=== PATIENT | male | born 2000 | race Caucasian/White ===

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

== ENCOUNTER 2019-06-08 14:12 | Emergency (ER) | payer BC ==
--- NOTE | 2019-06-08 14:16 | PDOC ---
History of Present Illness - General Chief Complaint: Sore Throat Stated Complaint: sore throat Time Seen by Provider: 06/08/19 14:16 - History of Present Illness Initial Comments: 06/08/19 14:19 Pt presents to the ED complaining of a one day history of fever, sore throat and difficulty swallowing. Also complaining of chills without measured fever. Denies nausea, vomiting or cough. Seen at an urgent care yesterday and discharged with ibuprofen and cough syrup. Rapid strep at urgent care yesterday was negative. States that he has been unable to tolerate PO since last night. Past History - Past Medical History Allergies/Adverse Reactions: Allergies Allergy/AdvReac Type Severity Reaction Status Date / Time No Known Allergies Allergy Verified 06/08/19 14:14 Home Medications: Ambulatory Orders Amoxicillin 875 mg PO BID #20 tablet 06/08/19 Kidney Stones: Yes Psychiatric Problems: Yes (add,anxiety) - Immunization History Td Vaccination: Yes TDAP Vaccination: Yes Immunization Up to Date: Yes - Psycho Social/Smoking Cessation Hx Smoking Status: No Smoking History: Current every day smoker Have you smoked in the past 12 months: Yes Number of Cigarettes Smoked Daily: 10 Cigars Per Day: 0 'Breaking Loose' booklet given: 05/09/16 Hx Alcohol Use: No Drug/Substance Use Hx: No Substance Use Type: None Review of Systems - Review of Systems Is the patient limited Guamanian proficient: No Constitutional: Yes: Chills, Loss of Appetite, Malaise. No: Symptoms Reported, See HPI, Diaphoresis, Fever, Night Sweats, Weakness, Weight Stable, Unintentional Wgt. Loss, Unexplained wgt Loss, Other HEENTM: Yes: Throat Pain, Throat Swelling. No: Symptoms Reported, See HPI, Eye Pain, Blurred Vision, Tearing, Recent change in vision, Double Vision, Cataracts , Ear Pain, Ocular Prothesis, Ear Discharge, Nose Pain, Nose Congestion, Tinnitus, Nose Bleeding, Hearing Loss, Mouth Pain, Dental Problems, Difficulty Swallowing, Mouth Swelling, Other Respiratory: No: Symptoms reported, See HPI, Cough, Orthopnea, Shortness of Breath, SOB with Exertion, SOB at Rest, Stridor, Wheezing, Productive cough, Hemoptysis, Other Cardiac (ROS): No: Symptoms Reported, See HPI, Chest Pain, Edema, Irregular Heart Rate, Lightheadedness, Palpitations, Syncope, Chest Tightness, Other ABD/GI: No: Symptoms Reported, See HPI, Abdominal Distended, Abd. Pain w/ defecation, Blood Streaked Bowels, Constipated, Diarrhea, Difficulty Swallowing , Nausea, Poor Appetite, Poor Fluid Intake, Rectal Bleeding, Vomiting, Indigestion, Abdominal cramping, Tarry Stools, Other : No: Symptoms Reported, See HPI, Burning, Dysuria, Discharge, Frequency, Flank Pain, Hematuria, Incontinence, Pain, Urgency, Testicular Mass, Testicular Swelling, Lesions, Testicular Pain, Other Musculoskeletal: No: Symptoms Reported, See HPI, Back Pain, Gout, Joint Pain, Joint Swelling, Muscle Pain, Muscle Weakness, Neck Pain, Joint Stiffness, Other Integumentary: No: Symptoms Reported, See HPI, Bruising, Change in Color, Change in Hair/Nails, Dryness, Erythema, Flushing, Lesions, Lumps, Pallor, Pruritus, Rash, Sweating, Other Neurological: No: Symptoms reported, See HPI, Headache, Numbness, Paresthesia, Pre-Existing Deficit, Seizure, Tingling, Tremors, Weakness, Unsteady Gait, Ataxia, Dizziness, Other All Other Systems: Reviewed and Negative *Physical Exam - Physical Exam Comments: 06/08/19 14:25 Gen: Alert, mildly uncomfortable. HEENT: R tm + erythema and exudate L TM clear Throat: + tonsillar erythema and exudate, + bilateral swollen tonsils CV: RRR mildly tachycardic Pulm: CTA b/l Abdomen: soft, non tender, non distended, no guarding or rebound skin: no rashes. ED Treatment Course - LABORATORY CBC & Chemistry Diagram: 06/08/19 14:30 06/08/19 14:25 Medical Decision Making - Medical Decision Making 06/08/19 14:32 Pt presents to the ED complaining of R ear pain, sore throat and chills. Exam is consistent with pharyngitis and otitis media on the R. Will treat with steroids, IVF and toradol. Will treat with amoxicillin and have patient return to the ED for continued or worsening symptoms. Discharge - Discharge Information Problems reviewed: Yes Clinical Impression/Diagnosis: Acute bacterial tonsillitis Otitis media Qualifiers: Otitis media type: suppurative Chronicity: acute Laterality: right Recurrence: non-recurrent Spontaneous tympanic membrane rupture: without spontaneous rupture Qualified Code(s): H66.001 - Acute suppurative otitis media without spontaneous rupture of ear drum, right ear Condition: Good Disposition: HOME - Admission No - Additional Discharge Information Prescriptions: Amoxicillin 875 mg PO BID #20 tablet Prescription Drug Monitoring Program (I-STOP) results: I-STOP not reviewed - Follow up/Referral - Patient Discharge Instructions Patient Printed Discharge Instructions: DI for Pharyngitis/Tonsillopharyngitis -- Adult, DI for Middle Ear Infection-Adult Additional Instructions: you came to the ED for sore throat and ear pain. You have an ear infection, and swelling and pus on your tonsils which are probably causing your symptoms. You MUST drink fluids and take the antibiotics prescribed until they are all gone. Return to the ED for severe throat pain, unable to swallow liquids, continued fever after 3 days of antibiotics, rash, other new or worsening symptoms. - Post Discharge Activity
[2019-06-08] MEDS ORDERED: SODIUM CHLORIDE 0.9% 500 ML INFUS.BAG IV ONE ×2 (14:17→15:05)
[2019-06-08] MEDS ORDERED: DEXAMETHASONE SOD PHOSPHATE 4 MG/1 ML VIAL IM ONE (14:17)
[2019-06-08] MEDS ORDERED: KETOROLAC TROMETHAMINE 30 MG/1 ML VIAL IVPUSH ONE (14:17)
[2019-06-08 14:19] VITALS: BP 133/86; PULSE 104; TEMP 99; BMI 17.4
[2019-06-08] MEDS ORDERED: KETOROLAC TROMETHAMINE 30 MG/1 ML VIAL ONE (14:27)
[2019-06-08] MEDS ORDERED: DEXAMETHASONE SOD PHOSPHATE 4 MG/1 ML VIAL ONE (14:27)
[2019-06-08 14:36] LABS: HEMATOCRIT 43.8 % (35.4-49); HEMOGLOBIN 14.9 GM/dl (11.7-16.9); MCH 30.5 pg (25.7-33.7); MEAN CELL VOLUME 89.6 fl (80-96); MEAN PLT VOLUME 9.5 fl (7.5-11.1); PLATELET COUNT 298 K/MM3 (134-434); RBC 4.88 M/mm3 (4.00-5.60); RDW 12.5 % (11.9-15.9); WHITE BLOOD COUNT 23.2 K/mm3 (4.0-10.8)
[2019-06-08 14:47] LABS: ALBUMIN 4.6 g/dl (3.4-5.0); BILIRUBIN,TOTAL 1.4 mg/dl (0.2-1); CALCIUM 9.4 mg/dl (8.5-10); TOT PROT 7.8 g/dl (6.4-8.2)
[2019-06-08] MEDS ORDERED: ACETAMINOPHEN INJECTION 100 ML IVPB ONE (14:49)
[2019-06-08] MEDS ORDERED: ACETAMINOPHEN 1000 MG/100 ML VIAL (NON FORMULARY) IVPB ONE (14:49)
[2019-06-08] MEDS ORDERED: AMOX TR/POT CLAV 875MG/125MG TABLETS (FP) PO ONE (15:10)
[2019-06-08] MEDS ORDERED: AMOX TR/POT CLAV 875MG/125MG TABLETS (FP) ONE (15:11)
[2019-06-08 18:22] LABS: PLATELET ESTIMATE ADEQUATE
== END 2019-06-08 15:58 | disposition home or self-care (01) ==
LOC: FER 14:12
PROC: 3E0333Z Introduction of Anti-inflammatory into Peripheral Vein, Percutaneous Approach (ICD-10-PCS; principal; 2019-06-08)
PROC: 3E033NZ Introduction of Analgesics, Hypnotics, Sedatives into Peripheral Vein, Percutaneous Approach (ICD-10-PCS; 2019-06-08)
PROC: 3E023GC Introduction of Other Therapeutic Substance into Muscle, Percutaneous Approach (ICD-10-PCS; 2019-06-08)
DX: J03.90 Acute tonsillitis, unspecified (principal); H66.001 Acute suppurative otitis media without spontaneous rupture of ear drum, right ear; F17.210 Nicotine dependence, cigarettes, uncomplicated
CPT/HCPCS: 36415; 80053; 85025; 86308; 87070; 87077; 87880; 99282-25; J0131

== ENCOUNTER 2022-09-19 00:56 | Emergency (ER) | payer BC, OTHER ==
[2022-09-19] MEDS ORDERED: ACETAMINOPHEN 1000 MG/100 ML BAG IVPB ONE (01:04)
[2022-09-19] MEDS ORDERED: FAMOTIDINE 20 MG/50 ML IVPB 20 MG/50 ML MG IVPB ONE ×2 (01:04→01:05)
[2022-09-19] MEDS ORDERED: ONDANSETRON 4 MG/2 ML VIAL IVPUSH ONE (01:04)
[2022-09-19] MEDS ORDERED: SODIUM CHLORIDE 1,000 ML IV STA (01:04)
[2022-09-19] MEDS ORDERED: ONDANSETRON 4 MG/2 ML VIAL ONE (01:05)
[2022-09-19 01:06] VITALS: BP 113/57; PULSE 90; RESP 20; TEMP 98.9; BMI 18.1
[2022-09-19] MEDS ORDERED: ACETAMINOPHEN INJECTION 100 ML IVPB ONE (01:06)
== END 2022-09-19 02:23 | disposition home or self-care (01) ==
LOC: FER 00:56
PROC: 3E033GC Introduction of Other Therapeutic Substance into Peripheral Vein, Percutaneous Approach (ICD-10-PCS; principal; 2022-09-19)
DX: K52.9 Noninfective gastroenteritis and colitis, unspecified (principal)
CPT/HCPCS: 99284-25

== ENCOUNTER 2023-05-14 16:54 | Emergency (ER) | payer BC, OTHER ==
[2023-05-14 17:04] VITALS: BP 131/88; PULSE 89; RESP 18; TEMP 98.4; BMI 19.5
[2023-05-14 20:38] LABS: THROAT:GRP A STREP NOT DETECTED (NOTDETECTED)
== END 2023-05-14 17:57 | disposition home or self-care (01) ==
LOC: FER 16:54
DX: R09.81 Nasal congestion (principal); R53.81 Other malaise; J06.9 Acute upper respiratory infection, unspecified; Z20.822 Contact with and (suspected) exposure to COVID-19
CPT/HCPCS: 0241U-QW; 87651; 99283-25

== ENCOUNTER 2023-12-29 08:47 | Emergency (ER) | payer BC ==
[2023-12-29 08:54] VITALS: BP 140/85; PULSE 95; RESP 18; TEMP 99.5; BMI 22.5
== END 2023-12-29 09:06 | disposition home or self-care (01) ==
LOC: FER 08:47
DX: R09.89 Other specified symptoms and signs involving the circulatory and respiratory systems (principal); R50.9 Fever, unspecified; M79.10 Myalgia, unspecified site; R21 Rash and other nonspecific skin eruption
CPT/HCPCS: 99283-25